=== PATIENT | male | born 1930 | race Caucasian/White ===

== ENCOUNTER 2017-01-08 15:03 | Inpatient (IN) | payer MEDICARE ==
[~2017-01-08] VITALS: Ht 177.8 cm; Wt 90.4 kg
[2017-01-08 15:03] VITALS: BP 103/61; PULSE 69; RESP 24; TEMP 97.8; O2SAT 100
[~2017-01-08 15:03] MED LIST: BISA10SU8 PR; HYDR-3580 PO; MILKSUS5 PO; POTA-243 PO; RIVA20 PO; SPIR25TA PO; TAB-TAB PO
[2017-01-08] MEDS ORDERED: methylPREDNISolone SOD SUCC 125 MG/2 ML VIAL IV PUSH ONE (15:30)
[2017-01-08] MEDS ORDERED: SODIUM CHLORIDE 0.9% FLUSH 10 ML FLUSH IVF PRN (15:30)
--- NOTE | 2017-01-08 15:52 | PD ---
Physical Exam Date Seen by Provider: Jan 08, 2017 Narrative Patient presents stating that he was sent here by the [facility] for a cough. Data Data Orders Orders Complete Blood Count With Diff (01/08/17:) Comprehensive Metabolic Panel (01/08/17) B-Type Natriuretic Peptide (01/08/17) Act Partial Throm Time (Ptt) (01/08/17:) Prothrombin Time / Inr (Pt) (01/08/17) Urinalysis - C+S If Indicated (01/08/17) Iv Access Insert/Monitor (01/08/17) Electrocardiogram (01/08/17) Ecg Monitoring (01/08/17) Oximetry (01/08/17) Oxygen Administration (01/08/17) Chest, Single Ap (01/08/17:) Sodium Chloride 0.9% Flush (Ns Flush) (01/08/17 15:30) Methylprednisolone So Succ Inj (Solumedr (01/08/17 15:30) Albuterol-Ipratropium Neb (Duoneb Neb) (01/08/17 15:30) MDM Supervised Visit with NHAN: Yes Narrative Course I, Dr. Santiago, have reviewed the advance practice practitioner's documentation and am in agreement, met with the patient face to face, made the diagnosis, and the medical decision making was done by me. *My assessment and Findings: This patient is awake and alert. He does not appear to be in any acute respiratory distress. He does have diffuse rhonchi. Please see Smitha Simmons PA-C's note for results of laboratory and radiographic evaluation, ED course, final diagnosis and disposition Yenny Santiago MD Jan 08, 2017 15:52
--- NOTE | 2017-01-08 16:01 | RADRPT ---
EXAM DATE/TIME: 01/08/2017 15:52 [place] COMPARISON: No previous studies available for comparison. INDICATIONS : Shortness of breath. MEDICAL HISTORY : Hypertension. SURGICAL HISTORY : Cardiac valve replacement. ENCOUNTER: Initial ACUITY: 1 week PAIN SCORE: 0/10 LOCATION: chest FINDINGS: Portable AP view of the chest demonstrates a normal-sized cardiac silhouette in this patient post med aldo sternotomy and valve replacement. There is calcification of the aorta. There are bibasilar pleura l-parenchymal opacities. No pneumothorax is identified. Bones and soft tissues demonstrate no acute f inding. There are old right rib fractures. CONCLUSION: Small bibasilar opacities characteristic of small pleural effusions with associated volume loss and/o r airspace consolidation. Jacob Clements MD on January 08, 2017 at 15:58 Board Certified Radiologist. This report was verified electronically.
--- NOTE | 2017-01-08 16:32 | PD ---
HPI Chief Complaint: Respiratory Symptoms Time Seen by Provider: 15:11 Travel History International Travel<30 days: No Contact w/Intl Traveler<30days: No Traveled to known affect area: No History of Present Illness HPI 86-year-old male with history of CHF, COPD, A. fib, HTN on Xarelto presents to the ED for evaluation of cough and worsening dyspnea on exertion. Patient states that he was at the [facility] to get [facility] today, had a doctor take a look at him and was sent to the emergency room. He endorses recent history of CHF diagnosis with hospitalization. He states that he was discharged to a rehabilitation where "they aren't giving me much rehabilitation." He endorses chronic, nonproductive cough. She endorses increased swelling in bilateral lower extremities. He denies fevers, chills, headaches, dizziness, chest pain, palpitations, abdominal pain, nausea, vomiting, changes in bowel habits, dysuria , back pain. PFSH Past Medical History Hx Anticoagulant Therapy: No Atrial Fibrillation: Yes Congestive Heart Failure: Yes COPD: Yes Cerebrovascular Accident: Yes Diabetes: No Hypertension: Yes Respiratory: Yes (COPD) Past Surgical History Joint Replacement: Yes Social History Alcohol Use: No Tobacco Use: No Substance Use: No Allergies-Medications (Allergen,Severity, Reaction): Coded Allergies: penicillin G (Unverified Allergy, Severe, Anaphylaxis, 01/08/17) Reported Meds & Prescriptions Reported Meds & Active Scripts Active Reported Xanax (Alprazolam) 0.25 Mg Tab 0.25 Mg PO Q8H PRN Metoprolol Tartrate 50 Mg Tab 50 Mg PO BID Ventolin Hfa 18 GM Inh (Albuterol Sulfate) 90 Mcg/Act Aer 2 Puff INH Q6H PRN Lisinopril 5 Mg Tab 5 Mg PO DAILY Ibuprofen 200 Mg Cap 200 Mg PO DAILY PRN Digoxin 0.125 Mg Tab 0.125 Mg PO DAILY Aspirin 81 Mg Chew 81 Mg CHEW DAILY Lasix (Furosemide) 40 Mg Tab 40 Mg PO DAILY Spironolactone 25 Mg Tab 25 Mg PO BIDPC Review of Systems Except as stated in HPI: all other systems reviewed are Neg Physical Exam Narrative GENERAL: Well-nourished, well-developed is a white male in no acute distress. On 3 L by nasal cannula. SKIN: Focused skin assessment warm/dry. HEAD: Normocephalic. EYES: No scleral icterus. No injection or drainage. NECK: Supple, trachea midline. No JVD or lymphadenopathy. CARDIOVASCULAR: Regular rate and rhythm without murmurs, gallops, or rubs. RESPIRATORY: Coarse rhonchi in bilateral lungs. No accessory muscle use. GASTROINTESTINAL: Abdomen soft, non-tender, nondistended. RECTAL EXAM: No masses or tenderness, stool is brown. Guaiac positive. MUSCULOSKELETAL: No cyanosis. 1+ pitting edema to the knees bilaterally. BACK: Nontender without obvious deformity. No CVA tenderness. Data Data Last Documented VS Vital Signs Date Time Temp Pulse Resp B/P (MAP) Pulse Ox O2 Delivery O2 Flow Rate FiO2 01/08/17 17: 64 24 100 Nasal Cannula 3.00 01/08/17 15:03 97.8 Orders Orders Complete Blood Count With Diff (01/08/17:25) Comprehensive Metabolic Panel (01/08/17:) B-Type Natriuretic Peptide (01/08/17:) Act Partial Throm Time (Ptt) (01/08/17:) Prothrombin Time / Inr (Pt) (01/08/17 15:25) Urinalysis - C+S If Indicated (01/08/17 15:25) Iv Access Insert/Monitor (01/08/17:) Electrocardiogram (01/08/17:25) Ecg Monitoring (01/08/17:25) Oximetry (01/08/17 15:25) Oxygen Administration (01/08/17 15:25) Chest, Single Ap (01/08/17 15:25) Sodium Chloride 0.9% Flush (Ns Flush) (01/08/17 15:30) Methylprednisolone So Succ Inj (Solumedr (01/08/17 15:30) Albuterol-Ipratropium Neb (Duoneb Neb) (01/08/17 15:30) Furosemide Inj (Lasix Inj) (01/08/17 17:30) Labs Laboratory Tests Test 01/08/17 15:50 01/08/17 16:00 Urine Color LIGHT-YELLOW Urine Turbidity CLEAR Urine pH 5.5 Urine Specific [place] 1.006 Urine Protein NEG mg/dL Urine Glucose (UA) NEG mg/dL Urine Ketones NEG mg/dL Urine Occult Blood NEG Urine Nitrite NEG Urine Bilirubin NEG Urine Urobilinogen LESS THAN 2.0 MG/DL Urine Leukocyte Esterase NEG Urine RBC LESS THAN 1 /hpf Urine WBC LESS THAN 1 /hpf Microscopic Urinalysis Comment CULT NOT INDICATED White Blood Count 4.8 TH/MM3 Red Blood Count 3.16 MIL/MM3 Hemoglobin 9.2 GM/DL Hematocrit 28.1 % Mean Corpuscular Volume 89.0 FL Mean Corpuscular Hemoglobin 29.1 PG Mean Corpuscular Hemoglobin Concent 32.7 % Red Cell Distribution Width 14.8 % Platelet Count 114 TH/MM3 Mean Platelet Volume 8.4 FL Neutrophils (%) (Auto) 69.2 % Lymphocytes (%) (Auto) 11.2 % Monocytes (%) (Auto) 12.0 % Eosinophils (%) (Auto) 6.6 % Basophils (%) (Auto) 1.0 % Neutrophils # (Auto) 3.3 TH/MM3 Lymphocytes # (Auto) 0.5 TH/MM3 Monocytes # (Auto) 0.6 TH/MM3 Eosinophils # (Auto) 0.3 TH/MM3 Basophils # (Auto) 0.0 TH/MM3 CBC Comment DIFF FINAL Differential Comment Prothrombin Time 12.4 SEC Prothromb Time International Ratio 1.1 RATIO Activated Partial Thromboplast Time 28.4 SEC Blood Urea Nitrogen 33 MG/DL Creatinine 1.41 MG/DL Random Glucose 91 MG/DL Total Protein 6.4 GM/DL Albumin 3.4 GM/DL Calcium Level 8.4 MG/DL Alkaline Phosphatase 124 U/L Aspartate Amino Transf (AST/SGOT) 26 U/L Alanine Aminotransferase (ALT/SGPT) 33 U/L Total Bilirubin 0.7 MG/DL Sodium Level 138 MEQ/L Potassium Level 4.3 MEQ/L Chloride Level 103 MEQ/L Carbon Dioxide Level 27.6 MEQ/L Anion Gap 7 MEQ/L Estimat Glomerular Filtration Rate 47 ML/MIN B-Type Natriuretic Peptide 2155 PG/ML MDM Medical Decision Making Medical Screen Exam Complete: Yes Emergency Medical Condition: Yes Differential Diagnosis CHF exacerbation versus COPD exacerbation versus pneumonia versus other Narrative Course 86-year-old male with history of CHF, COPD, A. fib, HTN on Xarelto presents to the ED for evaluation of cough and worsening dyspnea on exertion. Patient states that he was at the [facility] to get [facility] today, had a doctor take a look at him and was sent to the emergency room. He endorses recent history of CHF diagnosis with hospitalization, discharged to rehabilitation where "they aren't giving me much rehabilitation." He endorses chronic, nonproductive cough. She endorses increased swelling in bilateral lower extremities. Vitals reviewed. Physical exam reveals a nontoxic-appearing white male in no acute distress. He is wearing 3L O2 nasal cannula. Heart rate irregularly irregular. Rhonchi in bilateral lung xie. 1+ edema to the knees bilaterally. Guaiac positive on rectal exam. Patient was administered IV dexamethasone, do nebs 3. EKG rate 56, A. fib. RAD. RBBB. No ST changes. Reviewed by Dr. Santiago. CXR: Bilateral pleural effusions with atelectasis versus consolidation per radiology read. Cardiac enzymes: Negative 1. BNP: 2155 CBC: WBC 4.8. Hemoglobin 9.2. Hematocrit 28.1. Platelets 114. Coags: INR 1.1. CMP: BUN 33, creatinine 1.41. UA no culture indicated. On recheck he reports improvement of his breathing symptoms. Patient was administered 80 mg Lasix IV. Consult placed with gastroenterology. I spoke with Dr. Campa who agrees to accept the patient to the medicine service. Please see medicine notes for disposition. HemaPrompt Point of Care Internal Pos. & Neg. Controls: Passed Fecal Specimen Occult Blood: Positive Smitha Simmons Jan 08, 2017 16:32
[2017-01-08 16:35] LABS: AUTOMATED NEUTROPHIL # 3.3 TH/MM3 (1.8-7.7); EOSINOPHIL # 0.3 TH/MM3 (0-0.4); EOSINOPHIL % 6.6 % (0.0-4.0); HEMATOCRIT 28.1 % (39.0-51.0); HEMO FLAGS DIFF FINAL; LYMPH % 11.2 % (9.0-44.0); LYMPHOCYTE # 0.5 TH/MM3 (1.0-4.8); MEAN CORPUSCULAR HEMOGLOBIN 29.1 PG (27.0-34.0); MEAN CORPUSCULAR HGB CONC 32.7 % (32.0-36.0); NEUT % 69.2 % (16.0-70.0); PLATELET COUNT 114 TH/MM3 (150-450); RED BLOOD COUNT 3.16 MIL/MM3 (4.50-5.90); RED CELL DISTRIBUTION WIDTH 14.8 % (11.6-17.2); WHITE BLOOD COUNT 4.8 TH/MM3 (4.0-11.0)
[2017-01-08 16:47] LABS: BLOOD, URINE NEG (NEG); GLUCOSE,URINE NEG (NEG); KETONE, URINE NEG (NEG); NITRITE,URINE NEG (NEG); PH, URINE 5.5 (5.0-8.5); URINE COLOR LIGHT-YELLOW (YELLW/STRAW)
[2017-01-08 16:47] LABS: APTT (PATIENT) 28.4 SEC (24.3-30.1); INTERNATIONAL NORMALIZED RATIO 1.1 RATIO; PROTHROMBIN TIME - PATIENT 12.4 SEC (9.8-11.6)
[2017-01-08 16:49] LABS: COMMENT (UR) CULT NOT INDICATED; CULTURE IF INDICATED CULT NOT INDICATED
[2017-01-08 16:58] LABS: ALT (GPT) 33 U/L (12-78); ANION GAP 7 MEQ/L (5-15); AST (GOT) 26 U/L (15-37); BICARBONATE 27.6 MEQ/L (21.0-32.0); BLOOD UREA NITROGEN 33 MG/DL (7-18); CHLORIDE 103 MEQ/L (98-107); GLOMERULAR FILTRATION RATE 47 ML/MIN (>89); POTASSIUM 4.3 MEQ/L (3.5-5.1); SODIUM (NA) 138 MEQ/L (136-145)
[2017-01-08 17:00] LABS: ALKALINE PHOSPHATASE 124 U/L (45-117); TOTAL BILIRUBIN ADULT 0.7 MG/DL (0.2-1.0)
[2017-01-08 17:01] VITALS: PULSE 64; RESP 24; O2SAT 100
[2017-01-08] MEDS: RESP: ALBUTEROL 2.5 MG/IPRATROPIUM 0.5 MG NEB (SCH) INH (17:08)
[2017-01-08] MEDS ORDERED: DIGO0.12 PO (17:13)
[2017-01-08] MEDS ORDERED: LISI-519 PO (17:13)
[2017-01-08] MEDS ORDERED: IBUP200C PO (17:13)
[2017-01-08] MEDS ORDERED: SPIR25TA PO (17:13)
[2017-01-08] MEDS ORDERED: FURO1TAB60 PO (17:13)
[2017-01-08] MEDS ORDERED: ASPI-516 CHEW (17:13)
[2017-01-08] MEDS ORDERED: VENTAER INH (17:16)
[2017-01-08] MEDS ORDERED: ALPR.25 PO (17:16)
[2017-01-08] MEDS ORDERED: METO50TA PO (17:16)
[2017-01-08] MEDS ORDERED: FUROSEMIDE 100 MG/10 ML VIAL IV PUSH ONE (17:30)
--- NOTE | 2017-01-08 18:10 | HHI.HP ---
[facility] Service [facility] Primary Care Physician [facility] Admission Diagnosis CHF exacerbation, anemia Diagnoses: (1) Positive fecal occult blood test (2) Microcytic anemia (3) Acute exacerbation of congestive heart failure Chief Complaint: Shortness of breath Travel History International Travel<30 Days: No Contact w/Intl Traveler <30 Da: No Traveled to Known Affected Are: No History of Present Illness 86-year-old male with a history of A. fib, chronic systolic CHF was brought to the ED for evaluation of worsening symptoms of shortness of breath and dyspnea on exertion over the past 2-3 weeks. Patient also reports some nonproductive dry cough. . They went to the [facility] today for unrelated problem however was advised to check himself up in emergency department for further evaluation. He has been complaining of weakness. Denies any chest pain. In the ED, patient has a positive fecal occult blood test however denies any GI bleed. Review of Systems Except as stated in HPI: all other systems reviewed are Neg Past Family Social History Past Medical History Atrial Fibrillation: Yes Congestive Heart Failure: Yes COPD: Yes Cerebrovascular Accident: Yes Hypertension: Yes Respiratory: Yes (COPD) Past Surgical History Joint Replacement: Yes Reported Medications Xanax (Alprazolam) 0.25 Mg Tab 0.25 Mg PO Q8H PRN Metoprolol Tartrate 50 Mg Tab 50 Mg PO BID Ventolin Hfa 18 GM Inh (Albuterol Sulfate) 90 Mcg/Act Aer 2 Puff INH Q6H PRN Lisinopril 5 Mg Tab 5 Mg PO DAILY Ibuprofen 200 Mg Cap 200 Mg PO DAILY PRN Digoxin 0.125 Mg Tab 0.125 Mg PO DAILY Aspirin 81 Mg Chew 81 Mg CHEW DAILY Lasix (Furosemide) 40 Mg Tab 40 Mg PO DAILY Spironolactone 25 Mg Tab 25 Mg PO BIDPC Allergies: Coded Allergies: penicillin G (Unverified Allergy, Severe, Anaphylaxis, 01/08/17) Family History Due to patient's advanced age, family history noncontributory Social History Alcohol Use: No Tobacco Use: No Substance Use: No Physical Exam Vital Signs Vital Signs Date Time Temp Pulse Resp B/P (MAP) Pulse Ox O2 Delivery O2 Flow Rate FiO2 01/08/17 17:01 64 24 100 Nasal Cannula 3.00 01/08/17 15:05 100 Nasal Cannula 3.00 01/08/17 15:03 97.8 69 24 103/61 (75) 100 Physical Exam GENERAL: This is a well-nourished, well-developed patient, in no apparent distress. SKIN: No rashes, ecchymoses or lesions. Cool and dry. HEAD: Atraumatic. Normocephalic. No temporal or scalp tenderness. EYES: Pupils equal round and reactive. Extraocular motions intact. No scleral icterus. No injection or drainage. ENT: Nose without bleeding, purulent drainage or septal hematoma. Throat without erythema, tonsillar hypertrophy or exudate. Uvula midline. Airway patent. NECK: Trachea midline. No JVD or lymphadenopathy. Supple, nontender, no meningeal signs. CARDIOVASCULAR: Regular rate and rhythm without murmurs, gallops, or rubs. RESPIRATORY: Clear to auscultation. Breath sounds decreased bilaterally. GASTROINTESTINAL: Abdomen soft, non-tender, nondistended. No hepato-splenomegaly , or palpable masses. No guarding. MUSCULOSKELETAL: Extremities without clubbing, cyanosis, or edema. No joint tenderness, effusion, or edema noted. No calf tenderness. Negative Homans sign bilaterally. NEUROLOGICAL: Awake and alert. Cranial nerves II through XII intact. Motor and sensory grossly within normal limits. Five out of 5 muscle strength in all muscle groups. Normal speech. Laboratory Laboratory Tests Test 01/08/17 15:50 01/08/17 16:00 Urine Color LIGHT-YELLOW Urine Turbidity CLEAR Urine pH 5.5 Urine Specific [place] 1.006 Urine Protein NEG Urine Glucose (UA) NEG Urine Ketones NEG Urine Occult Blood NEG Urine Nitrite NEG Urine Bilirubin NEG Urine Urobilinogen LESS THAN 2.0 Urine Leukocyte Esterase NEG Urine RBC LESS THAN 1 Urine WBC LESS THAN 1 Microscopic Urinalysis Comment CULT NOT INDICATED White Blood Count 4.8 Red Blood Count 3.16 Hemoglobin 9.2 Hematocrit 28.1 Mean Corpuscular Volume 89.0 Mean Corpuscular Hemoglobin 29.1 Mean Corpuscular Hemoglobin Concent 32.7 Red Cell Distribution Width 14.8 Platelet Count 114 Mean Platelet Volume 8.4 Neutrophils (%) (Auto) 69.2 Lymphocytes (%) (Auto) 11.2 Monocytes (%) (Auto) 12.0 Eosinophils (%) (Auto) 6.6 Basophils (%) (Auto) 1.0 Neutrophils # (Auto) 3.3 Lymphocytes # (Auto) 0.5 Monocytes # (Auto) 0.6 Eosinophils # (Auto) 0.3 Basophils # (Auto) 0.0 CBC Comment DIFF FINAL Differential Comment Prothrombin Time 12.4 Prothromb Time International Ratio 1.1 Activated Partial Thromboplast Time 28.4 Blood Urea Nitrogen 33 Creatinine 1.41 Random Glucose 91 Total Protein 6.4 Albumin 3.4 Calcium Level 8.4 Alkaline Phosphatase 124 Aspartate Amino Transf (AST/SGOT) 26 Alanine Aminotransferase (ALT/SGPT) 33 Total Bilirubin 0.7 Sodium Level 138 Potassium Level 4.3 Chloride Level 103 Carbon Dioxide Level 27.6 Anion Gap 7 Estimat Glomerular Filtration Rate 47 B-Type Natriuretic Peptide 6335 Result Diagram: 01/08/17 1600 01/08/17 1600 Imaging Last Impressions Chest X-Ray 01/08/17 1525 Signed Impressions: Service Date/Time: Sunday, January 08, 2017 15:52 - CONCLUSION: Small bibasilar opacities characteristic of small pleural effusions with associated volume loss and/or airspace consolidation. Jacob Clements MD Capedson VTE Risk Assessment Caprini VTE Risk Assessment: Mod/High Risk (score >= 2) Caprini Risk Assessment Model Point Value = 1 Point Value = 2 Point Value = 3 Point Value = 5 Age 41-60 Minor surgery BMI > 25 kg/m2 Swollen legs Varicose veins or History of unexplained or recurrent spontaneous Oral contraceptives or hormone replacement Sepsis (< 1 month) Serious lung disease, including pneumonia (< 1 month) Abnormal pulmonary function Acute myocardial infarction Congestive heart failure (< 1 month) History of inflammatory bowel disease Medical patient at bed rest Age 61-74 Arthroscopic surgery Major open surgery (> 45 min) Laparoscopic surgery (> 45 min) Malignancy Confined to bed (> 72 hours) Immobilizing plaster cast Central venous access Age >= 75 History of VTE Family history of VTE Factor V Leiden Prothrombin [id number] Lupus anticoagulant Anticardiolipin antibodies Elevated serum homocysteine Heparin-induced thrombocytopenia Other congenital or acquired thrombophilia Stroke (< 1 month) Elective arthroplasty Hip, pelvis, or leg fracture Acute spinal cord injury (< 1 month) Prophylaxis Regimen Total Risk Factor Score Risk Level Prophylaxis Regimen 0-1 Low Early ambulation 2 Moderate Order ONE of the following: *Sequential Compression Device (SCD) *Heparin 5000 units SQ BID 3-4 Higher Order ONE of the following medications: *Heparin 5000 units SQ TID *Enoxaparin/Lovenox 40 mg SQ daily (WT < 150 kg, CrCl > 30 mL/min) *Enoxaparin/Lovenox 30 mg SQ daily (WT < 150 kg, CrCl > 10-29 mL/min) *Enoxaparin/Lovenox 30 mg SQ BID (WT < 150 kg, CrCl > 30 mL/min) AND/OR *Sequential Compression Device (SCD) 5 or more Highest Order ONE of the following medications: *Heparin 5000 units SQ TID (Preferred with Epidurals) *Enoxaparin/Lovenox 40 mg SQ daily (WT < 150 kg, CrCl > 30 mL/min) *Enoxaparin/Lovenox 30 mg SQ daily (WT < 150 kg, CrCl > 10-29 mL/min) *Enoxaparin/Lovenox 30 mg SQ BID (WT < 150 kg, CrCl > 30 mL/min) AND *Sequential Compression Device (SCD) Assessment and Plan Problem List: (1) Acute exacerbation of congestive heart failure ICD Code: I50.9 - Heart failure, unspecified (2) Microcytic anemia ICD Code: D50.9 - Iron deficiency anemia, unspecified (3) Positive fecal occult blood test ICD Code: R19.5 - Other fecal abnormalities Assessment and Plan 86 year-old man with Acute exacerbation of systolic CHF Chest x-ray noted and review by me with evidence of pulmonary conditions Status post Lasix 80 mg IV 1, continue with diuretic Check 2-D echo Resume beta colette and SAL inhibitor if BP allows Microcytic anemia positive fecal occult blood test GI consultation pending H&H monitoring Start PPI History of atrial fibrillation Hold aspirin, resume digoxin and beta colette Other chronic medical conditions Resume outpatient medications DVT prophylaxis: Chemical anti-prophylactic contraindicated secondary to GI bleed GI prophylaxis: PPI Code Status Full code Discussed Condition With Patient, ED physician Physician Certification 2 Midnight Certification Type: Admission for Inpatient Services Order for Inpatient Services The services are ordered in accordance with Medicare regulations or non- Medicare payer requirements, as applicable. In the case of services not specified as inpatient-only, they are appropriately provided as inpatient services in accordance with the 2-midnight benchmark. Estimated LOS (days): 2 days is the estimated time the patient will need to remain in the hospital, assuming treatment plan goals are met and no additional complications. Post-Hospital Plan: Not yet determined Yifan Campa MD Jan 08, 2017 18:10
[2017-01-08] MEDS ORDERED: MAGNESIUM HYDROXIDE SUSP 30 ML CUP PO PRN (18:15)
[2017-01-08] MEDS ORDERED: NALOXONE HCL 0.4 MG/ML AMP IV PUSH PRN (18:15)
[2017-01-08] MEDS ORDERED: SODIUM CHLORIDE 0.9% FLUSH 10 ML FLUSH IV FLUSH PRN (18:15)
[2017-01-08] MEDS ORDERED: ONDANSETRON HCL 4 MG/2 ML VIAL IVP PRN (18:15)
[2017-01-08] MEDS ORDERED: hydrALAZINE HCL 25 MG TAB PO PRN (18:15)
[2017-01-08] MEDS ORDERED: ACETAMINOPHEN 325 MG TAB PO PRN ×2 (18:15)
[2017-01-08 19:20] VITALS: BP 132/63; PULSE 70; O2SAT 93
[2017-01-08 19:22] VITALS: O2SAT 94
--- NOTE | 2017-01-08 19:35 | EKG ---
Date Performed: 01/08/2017 Time Performed: 16:19:05 PTAGE: 86 years EKG: ATRIAL FIBRILLATION WITH SLOW VENTRICULAR RESPONSE MARKED RIGHT AXIS DEVIATION RIGHT BUNDLE BRANCH BLOCK SEPTAL MYOCARDIAL INFARCTION ABNORMAL ECG NO PREVIOUS TRACING DOCTOR: Troy Das Interpretating Date/Time 01/08/2017 19:34:13
[2017-01-08 20:10] LABS: CREATINE KINASE 164 U/L (39-308)
[2017-01-08 20:28] VITALS: BP 158/74; PULSE 81; RESP 20; TEMP 97; O2SAT 100
[2017-01-08] MEDS: METOPROLOL TARTRATE 50 MG TAB PO SCH (21:50)
[2017-01-08] MEDS: SODIUM CHLORIDE 0.9% FLUSH 10 ML FLUSH IV FLUSH SCH (21:50)
[2017-01-08 23:27] VITALS: BP 121/88; PULSE 68; RESP 20; TEMP 97.4; O2SAT 97
[2017-01-09] VITALS (10 sets, daily range): BP systolic 83–141; BP diastolic 45–64; PULSE 64–85; RESP 18–20; TEMP 97.6–98.2; O2SAT 94–99
[2017-01-09 01:13] LABS: CREATINE KINASE 158 U/L (39-308)
--- NOTE | 2017-01-09 05:18 | EKG ---
Date Performed: 01/08/2017 Time Performed: 19:22:25 PTAGE: 86 years EKG: ATRIAL FIBRILLATION RIGHT BUNDLE BRANCH BLOCK SEPTAL MYOCARDIAL INFARCTION ABNORMAL ECG No significant change from prior electrocardiogram. PREVIOUS TRACING : 01/08/2017 16.19 DOCTOR: Troy Das Interpretating Date/Time 01/09/2017 05:16:35
[2017-01-09 07:45] LABS: AUTOMATED NEUTROPHIL # 3.2 TH/MM3 (1.8-7.7); BASOPHIL % 0.1 % (0.0-2.0); EOSINOPHIL % 0.1 % (0.0-4.0); HEMATOCRIT 27.1 % (39.0-51.0); HEMO FLAGS DIFF FINAL; LYMPH % 7.4 % (9.0-44.0); LYMPHOCYTE # 0.3 TH/MM3 (1.0-4.8); MEAN CELL VOLUME 88.5 FL (80.0-100.0); MEAN CORPUSCULAR HEMOGLOBIN 29.9 PG (27.0-34.0); MEAN CORPUSCULAR HGB CONC 33.8 % (32.0-36.0); MONO % 2.4 % (0.0-8.0); PLATELET COUNT 108 TH/MM3 (150-450); RED BLOOD COUNT 3.07 MIL/MM3 (4.50-5.90); WHITE BLOOD COUNT 3.6 TH/MM3 (4.0-11.0)
[2017-01-09 08:04] LABS: ALT (GPT) 27 U/L (12-78); ANION GAP 8 MEQ/L (5-15); AST (GOT) 23 U/L (15-37); BICARBONATE 27.6 MEQ/L (21.0-32.0); BLOOD UREA NITROGEN 35 MG/DL (7-18); CHLORIDE 101 MEQ/L (98-107); GLOMERULAR FILTRATION RATE 44 ML/MIN (>89); SODIUM (NA) 137 MEQ/L (136-145)
[2017-01-09 08:06] LABS: ALKALINE PHOSPHATASE 115 U/L (45-117); TOTAL BILIRUBIN ADULT 0.7 MG/DL (0.2-1.0)
[2017-01-09] MEDS: METOPROLOL TARTRATE 50 MG TAB PO SCH ×2 (08:30→21:55)
[2017-01-09] MEDS: FUROSEMIDE 40 MG/4 ML VIAL IV PUSH SCH ×2 (08:30→17:42)
[2017-01-09] MEDS: PANTOPRAZOLE SOD 20 MG DELAYED RELEASE TAB PO SCH (08:30)
[2017-01-09] MEDS: POTASSIUM CHLORIDE 20 MEQ CONTROLLED RELEASE TAB PO SCH (08:30)
[2017-01-09] MEDS: SODIUM CHLORIDE 0.9% FLUSH 10 ML FLUSH IV FLUSH SCH ×2 (08:31→21:57)
[2017-01-09] MEDS ORDERED: SPIRONOLACTONE 25 MG TAB PO SCH (09:00)
[2017-01-09] MEDS ORDERED: DIGOXIN 0.125 MG TAB PO SCH (09:00)
[2017-01-09] MEDS ORDERED: LISINOPRIL 5 MG TAB PO SCH (09:00)
[2017-01-09 10:19] LABS: TRANSFERRIN IRON PROFILE 289 MG/DL (200-360)
[2017-01-09 10:22] LABS: FERRITIN 25 NG/ML (26-388)
--- NOTE | 2017-01-09 10:43 | PD.CONS ---
HPI History of Present Illness This is a 86 year old male with AF, CHF, prosthetic heart valve, who presented with SOB and "congestion," sent from rehab. He was found to be anemic with hgb 9.2. denies blood in stool, black tarry stool, n/v, abd pain, weight loss, diarrhea, constipation. He is unable to tell me if he takes a blood thinner other than ASA. Per EMR no other blood thinners reported. Last had colonoscopy 4 years ago in [facility] per pt. He does cite a hx of polyps 20 years. Never had EGD. Denies frequent use NSAIDs. (Stephie Nickerson) PFSH Past Medical History Atrial Fibrillation: Yes Congestive Heart Failure: Yes COPD: Yes Cerebrovascular Accident: Yes Hypertension: Yes Respiratory: Yes (COPD) Past Surgical History Joint Replacement: Yes (Stephie Nickerson) Coded Allergies: penicillin G (Unverified Allergy, Severe, Anaphylaxis, 01/08/17) Family History Due to patient's advanced age, family history noncontributory Social History Alcohol Use: No Tobacco Use: No Substance Use: No (Stephie Nickerson) Review of Systems Constitutional: COMPLAINS OF: Weight gain, DENIES: Fever, Weight loss Endocrine: DENIES: Polydipsia Respiratory: DENIES: Hemoptysis Cardiovascular: DENIES: Chest pain Gastrointestinal: DENIES: Abdominal pain, Black stools, Bloody stools, Constipation, Diarrhea, Nausea, Vomiting, Hematemesis Genitourinary: DENIES: Hematuria Musculoskeletal: DENIES: Muscle aches Integumentary: DENIES: Jaundice Hematologic/lymphatic: DENIES: Lymphadenopathy Neurologic: DENIES: Paresthesias Psychiatric: DENIES: Anxiety (Stephie Nickerson) GI Exam Vitals I&O Vital Signs Date Time Temp Pulse Resp B/P (MAP) Pulse Ox O2 Delivery O2 Flow Rate FiO2 01/09/17 08:44 97.6 69 18 124/61 (82) 97 01/09/17 03:34 97.8 74 20 141/61 (87) 94 01/08/17 23:27 97.4 68 20 121/88 (99) 97 01/08/17 20:28 97.0 81 20 158/74 (102) 100 01/08/17 19:22 94 Room Air 01/08/17 19:21 94 Room Air 01/08/17 19:20 70 132/63 (86) 93 Room Air 01/08/17 17:01 64 24 100 Nasal Cannula 3.00 01/08/17 15:05 99 Nasal Cannula 3.00 01/08/17 15:05 100 Nasal Cannula 3.00 01/08/17 15:03 97.8 69 24 103/61 (75) 100 I/O 01/08/17 01/08/17 01/08/17 01/09/17 01/09/17 01/09/17 07:00 15:00 23:00 07:00 15:00 23:00 Output Total 900 ml Balance -900 ml Output Urine Total 900 ml # Voids 1 Imaging Last Impressions Chest X-Ray 01/08/17 1525 Signed Impressions: Service Date/Time: Sunday, January 08, 2017 15:52 - CONCLUSION: Small bibasilar opacities characteristic of small pleural effusions with associated volume loss and/or airspace consolidation. Jacob Clements MD Laboratory Test 01/08/17 15:50 01/08/17 16:00 01/08/17 19:27 01/09/17 00:39 Urine Color LIGHT-YELLOW Urine Turbidity CLEAR Urine pH 5.5 Urine Specific [place] 1.006 Urine Protein NEG mg/dL Urine Glucose (UA) NEG mg/dL Urine Ketones NEG mg/dL Urine Occult Blood NEG Urine Nitrite NEG Urine Bilirubin NEG Urine Urobilinogen LESS THAN 2.0 MG/DL Urine Leukocyte Esterase NEG Urine RBC LESS THAN 1 /hpf Urine WBC LESS THAN 1 /hpf Microscopic Urinalysis Comment CULT NOT INDICATED White Blood Count 4.8 TH/MM3 Red Blood Count 3.16 MIL/MM3 Hemoglobin 9.2 GM/DL Hematocrit 28.1 % Mean Corpuscular Volume 89.0 FL Mean Corpuscular Hemoglobin 29.1 PG Mean Corpuscular Hemoglobin Concent 32.7 % Red Cell Distribution Width 14.8 % Platelet Count 114 TH/MM3 Mean Platelet Volume 8.4 FL Neutrophils (%) (Auto) 69.2 % Lymphocytes (%) (Auto) 11.2 % Monocytes (%) (Auto) 12.0 % Eosinophils (%) (Auto) 6.6 % Basophils (%) (Auto) 1.0 % Neutrophils # (Auto) 3.3 TH/MM3 Lymphocytes # (Auto) 0.5 TH/MM3 Monocytes # (Auto) 0.6 TH/MM3 Eosinophils # (Auto) 0.3 TH/MM3 Basophils # (Auto) 0.0 TH/MM3 CBC Comment DIFF FINAL Differential Comment Prothrombin Time 12.4 SEC Prothromb Time International Ratio 1.1 RATIO Activated Partial Thromboplast Time 28.4 SEC Blood Urea Nitrogen 33 MG/DL Creatinine 1.41 MG/DL Random Glucose 91 MG/DL Total Protein 6.4 GM/DL Albumin 3.4 GM/DL Calcium Level 8.4 MG/DL Alkaline Phosphatase 124 U/L Aspartate Amino Transf (AST/SGOT) 26 U/L Alanine Aminotransferase (ALT/SGPT) 33 U/L Total Bilirubin 0.7 MG/DL Sodium Level 138 MEQ/L Potassium Level 4.3 MEQ/L Chloride Level 103 MEQ/L Carbon Dioxide Level 27.6 MEQ/L Anion Gap 7 MEQ/L Estimat Glomerular Filtration Rate 47 ML/MIN B-Type Natriuretic Peptide 2155 PG/ML Total Creatine Kinase 164 U/L 158 U/L Troponin I LESS THAN 0.02 NG/ML LESS THAN 0.02 NG/ML Test 01/09/17 06:43 White Blood Count 3.6 TH/MM3 Red Blood Count 3.07 MIL/MM3 Hemoglobin 9.2 GM/DL Hematocrit 27.1 % Mean Corpuscular Volume 88.5 FL Mean Corpuscular Hemoglobin 29.9 PG Mean Corpuscular Hemoglobin Concent 33.8 % Red Cell Distribution Width 15.0 % Platelet Count 108 TH/MM3 Mean Platelet Volume 9.0 FL Neutrophils (%) (Auto) 90.0 % Lymphocytes (%) (Auto) 7.4 % Monocytes (%) (Auto) 2.4 % Eosinophils (%) (Auto) 0.1 % Basophils (%) (Auto) 0.1 % Neutrophils # (Auto) 3.2 TH/MM3 Lymphocytes # (Auto) 0.3 TH/MM3 Monocytes # (Auto) 0.1 TH/MM3 Eosinophils # (Auto) 0.0 TH/MM3 Basophils # (Auto) 0.0 TH/MM3 CBC Comment DIFF FINAL Differential Comment Blood Urea Nitrogen 35 MG/DL Creatinine 1.51 MG/DL Random Glucose 141 MG/DL Total Protein 6.4 GM/DL Albumin 3.3 GM/DL Calcium Level 8.3 MG/DL Alkaline Phosphatase 115 U/L Aspartate Amino Transf (AST/SGOT) 23 U/L Alanine Aminotransferase (ALT/SGPT) 27 U/L Total Bilirubin 0.7 MG/DL Sodium Level 137 MEQ/L Potassium Level 4.0 MEQ/L Chloride Level 101 MEQ/L Carbon Dioxide Level 27.6 MEQ/L Anion Gap 8 MEQ/L Estimat Glomerular Filtration Rate 44 ML/MIN Iron Level 26 MCG/DL Total Iron Binding Capacity 405 MCG/DL Percent Iron Saturation 6.4 % Ferritin 25 NG/ML Physical Examination HEENT: PERRL; normocephalic; atraumatic; no jaundice. CHEST: coarse, crackles, coughing CARDIAC: cannot auscultate d/t pt coughing and won't stop talking ABDOMEN: semifirm, distended, nontender; umbilical hernia; bowel sounds are present in all four quadrants. EXTREMITIES: No clubbing, cyanosis, + pitting edema BLE SKIN: Normal; no rash; no jaundice. ecchymoses throughout WHEEL BRAIDER: No focal deficits; alert and oriented times three. (Stephie Nickerson) Assessment and Plan Plan ASSESSMENT - anemia, heme pos stool - no obvious bleeding. pt has hx prosthetic valve, AF but is unable to tell me if he is on blood thinners he is on other than aspirin last colonoscopy 4y ago normal per pt, never had EGD. no hx GIB, ulcers. he is not able to breathe laying supine, sounds very congested. - CHF exacerbation per primary, 2 d echo pending PLAN - EGD/colonoscopy when more stable, tentatively friday - monitor HH - transfuse as needed - notify GI of active bleeding - further recs to follow This pt seen by myself and Dr Jade and this note is written on his behalf (Stephie Nickerson) Plan Patient was seen and examined, agree with above-noted and plan, except patient would like to have his procedures in [place], he said he feel good and he wants to be discharged home tomorrow if his hemoglobin is stable since he is not seeing any blood and he will follow up in [place] for the endoscopy and colonoscopy per his request. (Debbie Jade MD) Stephie Nickerson Jan 09, 2017 10:43 Debbie Jade MD Jan 09, 2017 19:27
--- NOTE | 2017-01-09 12:47 | HHI.PR ---
Subjective Remarks diuresing well overnight on further discussion with him- was on entresto Objective Vitals Vital Signs Date Time Temp Pulse Resp B/P (MAP) Pulse Ox O2 Delivery O2 Flow Rate FiO2 01/09/17 11:45 65 104/55 (71) 01/09/17 11:12 98.0 69 18 83/45 (58) 95 01/09/17 08:44 97.6 69 18 124/61 (82) 97 01/09/17 03:34 97.8 74 20 141/61 (87) 94 01/08/17 23:27 97.4 68 20 121/88 (99) 97 01/08/17 20:28 97.0 81 20 158/74 (102) 100 01/08/17 19:22 94 Room Air 01/08/17 19:21 94 Room Air 01/08/17 19:20 70 132/63 (86) 93 Room Air 01/08/17 17:01 64 24 100 Nasal Cannula 3.00 01/08/17 15:05 99 Nasal Cannula 3.00 01/08/17 15:05 100 Nasal Cannula 3.00 01/08/17 15:03 97.8 69 24 103/61 (75) 100 I/O 01/08/17 01/08/17 01/08/17 01/09/17 01/09/17 01/09/17 07:00 15:00 23:00 07:00 15:00 23:00 Output Total 900 ml Balance -900 ml Output Urine Total 900 ml # Voids 1 Result Diagram: 01/09/17 0643 01/09/17 0643 Imaging Last Impressions Chest X-Ray 01/08/17 1525 Signed Impressions: Service Date/Time: Sunday, January 08, 2017 15:52 - CONCLUSION: Small bibasilar opacities characteristic of small pleural effusions with associated volume loss and/or airspace consolidation. Jacob Clements MD Objective Remarks awake and alert oriented x 3 anicteric lungs- no rales or wheezes irregular rhythm abdomen soft, nontender extremities no edema A/P Problem List: (1) Acute exacerbation of congestive heart failure ICD Code: I50.9 - Heart failure, unspecified (2) Microcytic anemia ICD Code: D50.9 - Iron deficiency anemia, unspecified (3) Positive fecal occult blood test ICD Code: R19.5 - Other fecal abnormalities Assessment and Plan 86 year-old man with Acute exacerbation of chronic systolic CHF EKG- a fib with RBBB pattern diuresing well- improved on IV diuretic restart his entresto - will confirm dose with son furosemide 40 mg bid- change to po in am DC Lisinopril- start on Entresto hold Aldactone for now- will confirm with son if he is on this Check 2-D echo Resume beta colette - Metoprolol bid SHAI - positive fecal occult blood test GI consultation- plan for colonoscopy. state colonoscopy in the past- + polyps, most recent > 5 years ago H&H monitoring Start PPI. start Fes04 325 mg po bid History of atrial fibrillation- rate controlled Hold aspirin, resume beta colette CKI- stable- recheck in am Other chronic medical conditions Resume outpatient medications DVT prophylaxis: Chemical anti-prophylactic contraindicated secondary to GI bleed GI prophylaxis: PPI d/w son on phone- mess- furosemide 40 mg po bid, atorvastatin 40 mg hs. Metroprolol 50 mg po bid, entresto 1/2 tab bid- ADD- this pm- went wide complex tachy- 6 runs stat K and Mg level cardiology consult Duncan Chi MD Jan 09, 2017 12:47
--- NOTE | 2017-01-09 14:39 | ECHRPT ---
Indication: Heart failure, unspecified CONCLUSIONS The left ventricular systolic function is normal with an estimated ejection fraction in the range of 55-60%. Normal left ventricular size. Mild concentric left ventricular hypertrophy. The left atrial size is moderately dilated. Dqal-em-whxmymzc mitral valve regurgitation. Moderate thickening of the mitral valve leaflets. Calcification of both mitral valve leaflets. There is estimated mild pulmonary hypertension present (range 40-50 mmHg). BP: 141 / 61 HR: Rhythm: MEASUREMENTS (Male / Female) Normal Values Technical Quality:Good 2D ECHO LV Diastolic Diameter PLAX 5.9 cm 4.2 - 5.9 / 3.9 - 5.3 cm LV Systolic Diameter PLAX 4.5 cm IVS Diastolic Thickness 1.4 cm 0.6 - 1.0 / 0.6 - 0.9 cm LVPW Diastolic Thickness 1.3 cm 0.6 - 1.0 / 0.6 - 0.9 cm LV Relative Wall Thickness 0.5 RV Internal Dim ED PLAX 3.2 cm M-MODE Aortic Root Diameter MM 3.4 cm LA Systolic Diameter MM 6.1 cm LA Ao Ratio MM 1.8 AV Cusp Separation MM 1.8 cm DOPPLER Mitral E Point Velocity 143.0 cm/s Mitral A Point Velocity 66.7 cm/s Mitral E to A Ratio 2.1 TR Peak Velocity 307.0 cm/s TR Peak Gradient 37.7 mmHg Right Atrial Pressure 10.0 mmHg Pulmonary Artery Systolic Pressu 47.7 mmHg Right Ventricular Systolic Press 47.7 mmHg FINDINGS LEFT VENTRICLE The left ventricular systolic function is normal with an estimated ejection fraction in the range of 55-60%. Normal left ventricular size. Mild concentric left ventricular hypertrophy. RIGHT VENTRICLE Normal right ventricular size and systolic function. LEFT ATRIUM The left atrial size is moderately dilated. RIGHT ATRIUM The right atrial size is mildly dilated. ATRIAL SEPTUM Normal atrial septal thickness without atrial level shunting by limited color doppler interrogation. AORTA The aortic root and proximal ascending aorta are not well visualized. MITRAL VALVE Apvw-uz-zsknxyeg mitral valve regurgitation. Moderate thickening of the mitral valve leaflets. Calcification of both mitral valve leaflets. AORTIC VALVE Trileaflet aortic valve. Trace aortic valve regurgitation. TRICUSPID VALVE There is estimated mild pulmonary hypertension present (range 40-50 mmHg). There is mild tricuspid valve regurgitation. Delio Cabral MD (Electronically Signed) Final Date:09 January 2017 14:39
[2017-01-09] MEDS: RESP: ALBUTEROL 2.5 MG/IPRATROPIUM 0.5 MG NEB (PRN) NEB ×3 (15:05→23:28)
[2017-01-09 19:37] LABS: MAGNESIUM 2.4 MG/DL (1.5-2.5); POTASSIUM 4.3 MEQ/L (3.5-5.1)
[2017-01-09] MEDS: SACUBITRIL/VALSARTAN 24 MG-26 MG TAB PO SCH (21:00)
[2017-01-09] MEDS: ATORVASTATIN 40 MG TAB PO SCH (21:55)
[2017-01-09] MEDS: FERROUS SULFATE 325 MG (65 MG ELEMENTAL IRON) TAB PO SCH (21:55)
[2017-01-09] MEDS: ALPRAZolam 0.25 MG TAB PO PRN (23:00)
[2017-01-09] MEDS ORDERED: guaiFENesin SOLUTION 200 MG/10 ML CUP PO ONE (23:15)
[2017-01-10] VITALS (8 sets, daily range): BP systolic 100–126; BP diastolic 52–59; PULSE 55–87; RESP 18–22; TEMP 97.4–99.6; O2SAT 94–100
[2017-01-10] MEDS: SODIUM CHLORIDE 0.9% FLUSH 10 ML FLUSH IV FLUSH SCH ×2 (08:29→21:43)
[2017-01-10] MEDS: METOPROLOL TARTRATE 50 MG TAB PO SCH ×3 (08:29→21:44)
[2017-01-10] MEDS: FUROSEMIDE 40 MG/4 ML VIAL IV PUSH SCH (08:29)
[2017-01-10] MEDS: PANTOPRAZOLE SOD 20 MG DELAYED RELEASE TAB PO SCH (08:29)
[2017-01-10] MEDS: SACUBITRIL/VALSARTAN 24 MG-26 MG TAB PO SCH ×2 (08:29→21:44)
[2017-01-10] MEDS: FERROUS SULFATE 325 MG (65 MG ELEMENTAL IRON) TAB PO SCH ×2 (08:29→21:44)
[2017-01-10] MEDS: POTASSIUM CHLORIDE 20 MEQ CONTROLLED RELEASE TAB PO SCH (08:29)
--- NOTE | 2017-01-10 09:43 | PD.CONS ---
HPI Consult Requested By Primary Care Physician [facility] History of Present Illness 86-year-old male with past medical history significant for A. fib in no blood thinners only on ASA, chronic diastolic CHF, Aortic Valve Replacement with a bioprosthesis, HTN brought to the ED for evaluation of worsening symptoms of shortness of breath and dyspnea on exertion over the past 2-3 weeks associated with nonproductive cough. Denies any chest pain. In the ED, he was found to have fecal occult blood test however denies any GI bleed and Hg is down. Cardiology consulted for CHF exacerbation and asymptomatic NSVT. On telemetry he is on atrial fibrillation, RBBB with episodes of NSVT. GI following. Review of Systems Consitutional: DENIES: Fatigue, Fever, Chills, Weight gain, Weight loss Eyes: DENIES: Amaurosis Fugax, Change in vision HEENT: DENIES: Lightheadedness, Change in hearing Respiratory: COMPLAINS OF: Shortness of breath, DENIES: See HPI, Cough, Snoring , Wheezing, Sputum production Cardiovascular: DENIES: See HPI, Chest pain, Palpitations, Syncope, Tachycardia Gastrointestinal: DENIES: Nausea, Vomiting, Change in bowel habits, Reflux, Bloody stools, Melena Genitourinary: DENIES: Urinary incontinence, Difficulty voiding Integumentary: DENIES: Rash Neurologic: DENIES: Tingling or numbness, Memory problems, Poor Balance, Stroke symptoms Musculoskeletal: DENIES: Joint pain, Muscle pain, Limited range of motion, Back pain Psychiatric: DENIES: Anxiety, Depression, Sleep disturbances Hematologic: DENIES: Bruising tendencies, Bleeding tendencies Endocrine: DENIES: Weight gain, Weight loss, Thyroid disease Past Family Social History Allergies: Coded Allergies: penicillin G (Unverified Allergy, Severe, Anaphylaxis, 01/08/17) Past Medical History Atrial Fibrillation Congestive Heart Failure COPD Cerebrovascular Accident Hypertension Hearing impaired Past Surgical History Joint Replacement AVR Reported Medications Reported Meds & Active Scripts Active Reported Xanax (Alprazolam) 0.25 Mg Tab 0.25 Mg PO Q8H PRN Metoprolol Tartrate 50 Mg Tab 50 Mg PO BID Ventolin Hfa 18 GM Inh (Albuterol Sulfate) 90 Mcg/Act Aer 2 Puff INH Q6H PRN Aspirin 81 Mg Chew 81 Mg CHEW DAILY Lasix (Furosemide) 40 Mg Tab 40 Mg PO DAILY Active Ordered Medications Current Medications Medications (Trade) Dose Ordered Sig/[place] Route Start Time Stop Time Status Last Admin (NS Flush) 2 ml UNSCH PRN IV FLUSH 01/08/17 18:15 (NS Flush) 2 ml BID IV FLUSH 01/08/17 21:00 01/10/17 08:29 (Tylenol) 650 mg Q4H PRN PO 01/08/17 18:15 (Zofran Inj) 4 mg Q6H PRN IVP 01/08/17 18:15 (Tylenol) 650 mg Q6H PRN PO 01/08/17 18:15 (Narcan Inj) 0.4 mg UNSCH PRN IV PUSH 01/08/17 18:15 (Milk Of Magnesia Liq) 30 ml Q12H PRN PO 01/08/17 18:15 (Lasix Inj) 40 mg BID@,18 IV PUSH 01/09/17 09:00 01/10/17 08:29 (KCl) 20 meq DAILY PO 01/09/17 09:00 01/10/17 08:29 (Protonix) 20 mg DAILY PO 01/09/17 09:00 01/10/17 08:29 (Duoneb Neb) 1 ampule Q2HR NEB PRN NEB 01/08/17 18:15 01/09/17 23:28 (Apresoline) 25 mg Q8HR PRN PO 01/08/17 18:15 (Xanax) 0.25 mg Q8H PRN PO 01/08/17 19:00 01/09/17 23:00 (Lopressor) 50 mg BID PO 01/08/17 21:00 01/10/17 08:29 (Entresto 24-26 Mg) 0.5 tab BID PO 01/09/17 21:00 01/10/17 08:29 (Ferrous Sulfate) 325 mg BID PO 01/09/17 21:00 01/10/17 08:29 (Lipitor) 40 mg HS PO 01/09/17 21:00 01/09/17 21:55 Family History Due to patient's advanced age, family history noncontributory Social History Social History Alcohol Use No Tobacco Use: No Substance Use: No Physical Exam Vital Signs Vital Signs Date Time Temp Pulse Resp B/P (MAP) Pulse Ox O2 Delivery O2 Flow Rate FiO2 01/10/17 08:00 97.4 68 18 126/57 (80) 97 01/10/17 04:00 99.6 65 22 119/56 (77) 95 01/10/17 04:00 Room Air 01/10/17 00:00 97.8 70 22 110/59 (76) 95 01/10/17 00:00 Room Air 01/09/17 23:30 21 01/09/17 22:00 Room Air 01/09/17 22:00 85 01/09/17 20:43 97.9 84 18 117/59 (78) 94 01/09/17 20:35 98 21 01/09/17 20:27 98.1 77 20 135/64 (87) 98 01/09/17 16:19 98.2 64 18 97/52 (67) 99 01/09/17 14:30 71 01/09/17 11:45 65 104/55 (71) 01/09/17 11:12 98.0 69 18 83/45 (58) 95 Physical Exam GENERAL: Well-nourished, well-developed patient. SKIN: Warm and dry. HEAD: Normocephalic. EYES: No scleral icterus. No injection or drainage. NECK: Supple, trachea midline. No JVD or lymphadenopathy. CARDIOVASCULAR: Irr Irr murmurs, gallops, or rubs. RESPIRATORY: Breath sounds equal bilaterally. No accessory muscle use. GASTROINTESTINAL: Abdomen soft, non-tender, nondistended. EXTREMITIES: No cyanosis, or edema. NEUROLOGICAL: Awake, alert, and oriented x 3. Non-focal. Laboratory Laboratory Tests Test 01/09/17 13:07 01/10/17 06:15 Potassium Level 4.3 Magnesium Level 2.4 Result Diagram: 01/09/17 0643 01/09/17 1307 Imaging Last Impressions Chest X-Ray 01/08/17 1525 Signed Impressions: Service Date/Time: Sunday, January 08, 2017 15:52 - CONCLUSION: Small bibasilar opacities characteristic of small pleural effusions with associated volume loss and/or airspace consolidation. Jacob Clements MD Assessment and Plan Problem List: (1) Microcytic anemia ICD Codes: D50.9 - Iron deficiency anemia, unspecified Plan: 86 y/o M admitted with anemia, heme + stool. Elevated BNP and RADHA. Cardiac Hx of Afib on NO oral anticoagulation and AVR (Bioprosthesis) having episodes of controlled AFib, asymptomatic NSVT and diastolic HF. 2Decho showed preserved LV systolic function with mild to moderate MR, mild PHTN, and good function of Aortic Valve Prosthesis. Adequate diuresis on IV Lasix but now in RADHA. Regarding SOB it can be multifactorial he has MR, TR, PHTN, anemia or less likely ischemia. In the event it has an ischemic component he would not be a candidate for an invasive risk stratification given iron deficiency anemia. Thus will recommend to get him compensated from HF standpoint, GI work up and follo up with Dr. Heath (his mucker [place]) upon discharge. PLAN - EGD/colonoscopy per GI - monitor H&H and transfuse as needed - Strict I&O - Low salt diet - Hold diuresis - Avoid electrolytes abnormalities - Hold ACEi given RADHA - Increase Lopressor to 50mg TID - ASA per GI recs Thank you for the opportunity to take part in the care of this patient Will be available ion a PRN basis for any questions or concerns (2) Acute exacerbation of congestive heart failure ICD Codes: I50.9 - Heart failure, unspecified (3) Positive fecal occult blood test ICD Codes: R19.5 - Other fecal abnormalities Nolan Pena MD Jan 10, 2017 09:43
--- NOTE | 2017-01-10 09:48 | HHI.PR ---
Subjective Remarks feeling better, diuresing well telemetry- some Non sustained VT- patient asymptomatic Objective Vitals Vital Signs Date Time Temp Pulse Resp B/P (MAP) Pulse Ox O2 Delivery O2 Flow Rate FiO2 01/10/17 08:00 97.4 68 18 126/57 (80) 97 01/10/17 04:00 99.6 65 22 119/56 (77) 95 01/10/17 04:00 Room Air 01/10/17 00:00 97.8 70 22 110/59 (76) 95 01/10/17 00:00 Room Air 01/09/17 23:30 21 01/09/17 22:00 Room Air 01/09/17 22:00 85 01/09/17 20:43 97.9 84 18 117/59 (78) 94 01/09/17 20:35 98 21 01/09/17 20:27 98.1 77 20 135/64 (87) 98 01/09/17 16:19 98.2 64 18 97/52 (67) 99 01/09/17 14:30 71 01/09/17 11:45 65 104/55 (71) 01/09/17 11:12 98.0 69 18 83/45 (58) 95 I/O 01/09/17 01/09/17 01/09/17 01/10/17 01/10/17 01/10/17 07:00 15:00 23:00 07:00 15:00 23:00 Intake Total 220 ml Output Total 900 ml Balance -680 ml Intake Oral 220 ml Output Urine Total 900 ml # Bowel Movements 0 Result Diagram: 01/09/17 0643 01/09/17 1307 Imaging Last Impressions Chest X-Ray 01/08/17 1525 Signed Impressions: Service Date/Time: Sunday, January 08, 2017 15:52 - CONCLUSION: Small bibasilar opacities characteristic of small pleural effusions with associated volume loss and/or airspace consolidation. Jacob Clements MD Objective Remarks awake and alert oriented x 3 anicteric lungs- no rales or wheezes irregular rhythm abdomen soft, nontender extremities - no edema A/P Problem List: (1) Acute exacerbation of congestive heart failure ICD Code: I50.9 - Heart failure, unspecified (2) Microcytic anemia ICD Code: D50.9 - Iron deficiency anemia, unspecified (3) Positive fecal occult blood test ICD Code: R19.5 - Other fecal abnormalities Assessment and Plan 86 year-old man with Acute exacerbation of chronic systolic CHF Atrial fibrillation- variable rate episode of NSVT 01/09 EKG- a fib with RBBB pattern K + Mg- normal diuresing well- improved on IV diuretic- -change to po- will hold today0 with increase in creatinine continue on Entresto continue Metoprolol - increase to q 8 electrolytes good cardiology ff SHAI - positive fecal occult blood test GI consultation- plan for colonoscopy. state colonoscopy in the past- + polyps, most recent > 5 years ago H&H monitoring Start PPI. start Fes04 325 mg po bid CKI- - creatinine up a little monitor, non oliguric. hold diuretic today. recheck in am Other chronic medical conditions Resume outpatient medications DVT prophylaxis: Chemical anti-prophylactic contraindicated secondary to GI bleed GI prophylaxis: PPI 01/09 d/w son on phone- mess- furosemide 40 mg po bid, atorvastatin 40 mg hs. Metroprolol 50 mg po bid, entresto 1/2 tab bid- this pm- went wide complex tachy- 6 runs stat K and Mg level cardiology consult Duncan Chi MD Jan 10, 2017 09:48
[2017-01-10 09:58] LABS: BICARBONATE 25.3 MEQ/L (21.0-32.0); POTASSIUM 4.3 MEQ/L (3.5-5.1)
--- NOTE | 2017-01-10 14:55 | HHI.GIFU ---
Subjective Remarks Pt is OOB and sitting comfortably in bedside chair, in no obvious distress. Reports good appetite and BM today, formed and soft. Denies any black stool or blood in stool. Denies nausea, vomiting, abdominal plan. Continued SOB with exertion but he states much improved since admission. (Stephie Nickerson) Objective Vitals I&O Vital Signs Date Time Temp Pulse Resp B/P (MAP) Pulse Ox O2 Delivery O2 Flow Rate FiO2 01/10/17 11:53 98.2 55 20 100/52 (68) 96 01/10/17 08:39 Room Air 01/10/17 08:39 71 01/10/17 08:00 97.4 68 18 126/57 (80) 97 01/10/17 04:00 99.6 65 22 119/56 (77) 95 01/10/17 04:00 Room Air 01/10/17 00:00 97.8 70 22 110/59 (76) 95 01/10/17 00:00 Room Air 01/09/17 23:30 21 01/09/17 22:00 Room Air 01/09/17 22:00 85 01/09/17 20:43 97.9 84 18 117/59 (78) 94 01/09/17 20:35 98 21 01/09/17 20:27 98.1 77 20 135/64 (87) 98 01/09/17 16:19 98.2 64 18 97/52 (67) 99 I/O 01/09/17 01/09/17 01/09/17 01/10/17 01/10/17 01/10/17 07:00 15:00 23:00 07:00 15:00 23:00 Intake Total 220 ml Output Total 900 ml Balance -680 ml Intake Oral 220 ml Output Urine Total 900 ml # Bowel Movements 0 Laboratory Laboratory Tests Test 01/10/17 06:15 01/10/17 11:35 Blood Urea Nitrogen 45 Creatinine 1.73 Random Glucose 90 Calcium Level 8.3 Sodium Level 137 Potassium Level 4.3 Chloride Level 99 Carbon Dioxide Level 25.3 Anion Gap 13 Estimat Glomerular Filtration Rate 37 B-Type Natriuretic Peptide 1135 Imaging Last Impressions Chest X-Ray 01/08/17 1525 Signed Impressions: Service Date/Time: Sunday, January 08, 2017 15:52 - CONCLUSION: Small bibasilar opacities characteristic of small pleural effusions with associated volume loss and/or airspace consolidation. Jacob Clements MD Physical Exam HEENT: Normocephalic; atraumatic; no jaundice. CHEST: Resp even/unlabored. CARDIAC: Irregular rhythm ABDOMEN: Soft, round, nontender; no hepatosplenomegaly; bowel sounds are present in all four quadrants. SKIN: Normal; no rash; no jaundice. BOBTAIL DRIVER: No focal deficits; alert and oriented times three. (Stephie Nickerson) Assessment and Plan Plan Plan ASSESSMENT - Anemia, heme pos stool - Denies black stool or obvious blood in stool. H/H ( 12/09/16) 9.2/27.1. No CBC from today to compare to. Reports fatigue is much improved. Pt is OOB and sitting up in chair. - CHF exacerbation per primary- SOB continued, much improved per pt, still with exertion - Telemetry showing non sustained VT per primary- cardiology consulted PLAN - EGD/colonoscopy- Previously discussed having colonoscopy done while inpatient , pt requesting to have done in [place] after DC. - CBC ordered now to monitor HH - transfuse as needed - notify GI of active bleeding - further recs to follow This pt seen by myself and Dr Zendejas and this note is written on his behalf (Stephie Nickerson) Physician Comments Seen and examined. Plan as above, will follow up with you. (Ra Zendejas MD) Stephie Nickerson Jan 10, 2017 14:55 Ra Zendejas MD Jan 10, 2017 18:50
[2017-01-10] MEDS: RESP: ALBUTEROL 2.5 MG/IPRATROPIUM 0.5 MG NEB (PRN) NEB ×2 (15:30→22:59)
[2017-01-10 18:25] LABS: AUTOMATED NEUTROPHIL # 5.5 TH/MM3 (1.8-7.7); BASOPHIL # 0.1 TH/MM3 (0-0.2); EOSINOPHIL # 0.3 TH/MM3 (0-0.4); EOSINOPHIL % 3.7 % (0.0-4.0); HEMO FLAGS DIFF FINAL; LYMPH % 10.1 % (9.0-44.0); LYMPHOCYTE # 0.7 TH/MM3 (1.0-4.8); MEAN CELL VOLUME 88.8 FL (80.0-100.0); MEAN CORPUSCULAR HEMOGLOBIN 29.6 PG (27.0-34.0); MEAN CORPUSCULAR HGB CONC 33.3 % (32.0-36.0); MONO % 7.3 % (0.0-8.0); NEUT % 77.9 % (16.0-70.0); PLATELET COUNT 121 TH/MM3 (150-450); RED BLOOD COUNT 3.16 MIL/MM3 (4.50-5.90); RED CELL DISTRIBUTION WIDTH 14.6 % (11.6-17.2)
[2017-01-10] MEDS: ATORVASTATIN 40 MG TAB PO SCH (21:43)
[2017-01-10] MEDS: ALPRAZolam 0.25 MG TAB PO PRN (21:46)
[2017-01-11] VITALS: BP 131/63; PULSE 71; RESP 18; TEMP 97.7; O2SAT 97
[2017-01-11] MEDS ORDERED: guaiFENesin SOLUTION 200 MG/10 ML CUP PO PRN (03:15)
[2017-01-11 04:00] VITALS: BP 114/53; PULSE 70; RESP 18; TEMP 97.6; O2SAT 97
[2017-01-11] MEDS: METOPROLOL TARTRATE 50 MG TAB PO SCH (05:59)
[2017-01-11 06:46] LABS: BICARBONATE 29.3 MEQ/L (21.0-32.0); MAGNESIUM 2.4 MG/DL (1.5-2.5); POTASSIUM 4.1 MEQ/L (3.5-5.1)
[2017-01-11 07:47] VITALS: PULSE 87
[2017-01-11 08:00] VITALS: BP 101/59; PULSE 69; RESP 20; TEMP 97.7; O2SAT 94
[2017-01-11] MEDS: PANTOPRAZOLE SOD 20 MG DELAYED RELEASE TAB PO SCH (08:38)
[2017-01-11] MEDS: SACUBITRIL/VALSARTAN 24 MG-26 MG TAB PO SCH (08:41)
[2017-01-11] MEDS: SODIUM CHLORIDE 0.9% FLUSH 10 ML FLUSH IV FLUSH SCH (08:41)
[2017-01-11] MEDS: POTASSIUM CHLORIDE 20 MEQ CONTROLLED RELEASE TAB PO SCH (08:41)
[2017-01-11] MEDS: FERROUS SULFATE 325 MG (65 MG ELEMENTAL IRON) TAB PO SCH (08:41)
--- NOTE | 2017-01-11 08:50 | HHI.PR ---
Subjective Remarks slept well overnight voiding well no chest pains or shortness of breath telemetry- a fib occasional PVC Objective Vitals Vital Signs Date Time Temp Pulse Resp B/P (MAP) Pulse Ox O2 Delivery O2 Flow Rate FiO2 01/11/17 07:47 Room Air 01/11/17 07:47 87 01/11/17 04:00 97.6 70 18 114/53 (73) 97 01/11/17 00:00 97.7 71 18 131/63 (85) 97 01/11/17 00:00 Room Air 01/10/17 20:30 Room Air 01/10/17 20:00 77 01/10/17 20:00 97.8 87 18 121/58 (79) 94 01/10/17 16:00 97.5 59 20 109/53 (71) 100 01/10/17 12:00 98.2 55 20 100/52 (68) 96 01/10/17 11:53 98.2 55 20 100/52 (68) 96 I/O 01/10/17 01/10/17 01/10/17 01/11/17 01/11/17 01/11/17 07:00 15:00 23:00 07:00 15:00 23:00 Intake Total 220 ml 480 ml Output Total 900 ml 300 ml 400 ml Balance -680 ml 180 ml -400 ml Intake Oral 220 ml 480 ml Output Urine Total 900 ml 300 ml 400 ml # Voids 2 # Bowel Movements 0 1 Result Diagram: 01/10/17 1757 01/11/17 0542 Imaging Last Impressions Chest X-Ray 01/08/17 1525 Signed Impressions: Service Date/Time: Sunday, January 08, 2017 15:52 - CONCLUSION: Small bibasilar opacities characteristic of small pleural effusions with associated volume loss and/or airspace consolidation. Jacob Clements MD Objective Remarks awake and alert oriented x 3 anicteric lungs- no rales or wheezes irregular rhythm abdomen soft, nontender extremities - no edema A/P Problem List: (1) Acute exacerbation of congestive heart failure ICD Code: I50.9 - Heart failure, unspecified (2) Microcytic anemia ICD Code: D50.9 - Iron deficiency anemia, unspecified (3) Positive fecal occult blood test ICD Code: R19.5 - Other fecal abnormalities Assessment and Plan 86 year-old man with Acute exacerbation of chronic systolic CHF Atrial fibrillation- variable rate episode of NSVT 01/09 EKG- a fib with RBBB pattern K + Mg- normal restart Lasix at 20 mg po bid continue on Entresto continue Metoprolol - 50 mg po 8 electrolytes good cardiology ff- OP ff up with Wind Technician- Dr. Chan in [facility] - positive fecal occult blood test plan for colonoscopy. state colonoscopy in the past- + polyps, most recent > 5 years ago- per patient he will set up as OP H&H stable Start PPI. start Fes04 325 mg po bid CKI- - creatinine stabilizing non oliguric. restart Lasix at 20 mg po bid OP BMP ff up GI prophylaxis: PPI DC home today FF up with PCP- Dr. Pena [facility] FF up with cardiology Dr. Chan in [facility] BMP on Friday Duncan Chi MD Jan 11, 2017 08:50
[2017-01-11] MEDS ORDERED: PANT20 PO (09:00)
[2017-01-11] MEDS ORDERED: FERR325T20 PO (09:00)
[2017-01-11] MEDS ORDERED: FURO20TA PO (09:00)
[2017-01-11] MEDS ORDERED: ALBUTEROL SULFATE 90 MCG/ACT HFA 8 GM INHALER INH PRN (09:00)
[2017-01-11] MEDS ORDERED: FUROSEMIDE 20 MG TAB PO SCH (09:00)
[2017-01-11] MEDS ORDERED: METO-309 PO (09:00)
[2017-01-11] MEDS ORDERED: SACU1TAB PO (09:02)
[2017-01-11] MEDS ORDERED: POTA20TA5 PO (09:02)
[2017-01-11 12:00] VITALS: BP 113/54; PULSE 79; RESP 20; TEMP 98; O2SAT 95
[2017-01-11] MEDS: RESP: ALBUTEROL 2.5 MG/IPRATROPIUM 0.5 MG NEB (PRN) NEB (12:34)
--- NOTE | 2017-01-11 13:35 | HHI.GIFU ---
Subjective Remarks Sitting up in chair in no apparent distress. Has good appetite. Denies abdominal pain. Denies dark stool or blood in stool. (Vanesa Cote) Objective Vitals I&O Vital Signs Date Time Temp Pulse Resp B/P (MAP) Pulse Ox O2 Delivery O2 Flow Rate FiO2 01/11/17 12:00 98.0 79 20 113/54 (73) 95 01/11/17 10:09 01/11/17 08:00 97.7 69 20 101/59 (73) 94 01/11/17 07:47 Room Air 01/11/17 07:47 87 01/11/17 04:00 97.6 70 18 114/53 (73) 97 01/11/17 00:00 97.7 71 18 131/63 (85) 97 01/11/17 00:00 Room Air 01/10/17 20:30 Room Air 01/10/17 20:00 77 01/10/17 20:00 97.8 87 18 121/58 (79) 94 01/10/17 16:00 97.5 59 20 109/53 (71) 100 I/O 01/10/17 01/10/17 01/10/17 01/11/17 01/11/17 01/11/17 07:00 15:00 23:00 07:00 15:00 23:00 Intake Total 220 ml 480 ml Output Total 900 ml 300 ml 400 ml 1250 ml Balance -680 ml 180 ml -400 ml -1250 ml Intake Oral 220 ml 480 ml Output Urine Total 900 ml 300 ml 400 ml 1250 ml # Voids 2 # Bowel Movements 0 1 Laboratory Laboratory Tests Test 01/10/17 17:57 01/11/17 05:42 White Blood Count 7.0 Red Blood Count 3.16 Hemoglobin 9.3 Hematocrit 28.0 Mean Corpuscular Volume 88.8 Mean Corpuscular Hemoglobin 29.6 Mean Corpuscular Hemoglobin Concent 33.3 Red Cell Distribution Width 14.6 Platelet Count 121 Mean Platelet Volume 8.8 Neutrophils (%) (Auto) 77.9 Lymphocytes (%) (Auto) 10.1 Monocytes (%) (Auto) 7.3 Eosinophils (%) (Auto) 3.7 Basophils (%) (Auto) 1.0 Neutrophils # (Auto) 5.5 Lymphocytes # (Auto) 0.7 Monocytes # (Auto) 0.5 Eosinophils # (Auto) 0.3 Basophils # (Auto) 0.1 CBC Comment DIFF FINAL Differential Comment Blood Urea Nitrogen 46 Creatinine 1.69 Random Glucose 96 Calcium Level 8.1 Phosphorus Level 3.8 Magnesium Level 2.4 Sodium Level 136 Potassium Level 4.1 Chloride Level 99 Carbon Dioxide Level 29.3 Anion Gap 8 Estimat Glomerular Filtration Rate 38 Imaging Last Impressions Chest X-Ray 01/08/17 1525 Signed Impressions: Service Date/Time: Sunday, January 08, 2017 15:52 - CONCLUSION: Small bibasilar opacities characteristic of small pleural effusions with associated volume loss and/or airspace consolidation. Jacob Clements MD Physical Exam HEENT: Normocephalic; atraumatic; no jaundice. CHEST: CTA CARDIAC: Irregular rhythm ABDOMEN: Soft, round, nontender; no hepatosplenomegaly; bowel sounds are present in all four quadrants. SKIN: Normal; no rash; no jaundice. SWITCH INSPECTOR: No focal deficits; alert and oriented times three. (Vanesa Cote) Assessment and Plan Plan ASSESSMENT - Anemia, heme pos stool - Denies black stool or obvious blood in stool. H/H stable (12/10/16) 9.3. - CHF exacerbation per primary- SOB continued, much improved per pt, still with exertion - Telemetry showing non sustained VT, per primary. Cardiology following. PLAN - Discharge home planned for today - EGD/Colonoscopy--previously discussed having these procedures done while inpatient, patient requesting to have done in [place] after DC. - GI will sign off Patient seen and examined by Dr. Zendejas and myself and this note is written on his behalf. (Vanesa Cote) Physician Comments Agree with above assessment and plan. (Ra Zendejas MD) Vanesa Cote Jan 11, 2017 13:35 Ra Zendejas MD Jan 11, 2017 23:05
== END 2017-01-11 13:34 | disposition home or self-care (01) | DRG 292 ==
LOC: NEPC 15:03 → NEDA 17:40 → NEPFCDU 20:17 → N04A 01-09 20:47
PROVIDERS: ADMIT Internal Medicine; ATTEND Internal Medicine
DX: I11.0 Hypertensive heart disease with heart failure (principal); I47.2 Ventricular tachycardia; I50.23 Acute on chronic systolic (congestive) heart failure; N17.9 Acute kidney failure, unspecified; J44.9 Chronic obstructive pulmonary disease, unspecified; I48.91 Unspecified atrial fibrillation; R19.5 Other fecal abnormalities; I45.10 Unspecified right bundle-branch block; Z95.2 Presence of prosthetic heart valve; Z86.010 Personal history of colon polyps; Z86.73 Personal history of transient ischemic attack (TIA), and cerebral infarction without residual deficits; H91.90 Unspecified hearing loss, unspecified ear; D50.9 Iron deficiency anemia, unspecified
CPT/HCPCS: 71010; 80048; 80053; 81001; 82550; 82728; 83540; 83550; 83735; 83880; 84100; 84132; 84484; 85025; 85610; 85730; 93005; 93306; 94640; 94664; 96374; J1940; J2930